=== PATIENT | male | born 1990 | race Caucasian/White ===

== ENCOUNTER → 2022-11-09 | Outpatient (CLI) | payer OTHER ==
[2022-11-11 00:07] LABS: CHLAMYDIA TRACHOMATIS, NAA Negative (Negative)
== END | disposition home or self-care (01) ==
LOC: LAB 11:07 → LAB SHORT 11:07
PROVIDERS: Nurse Practitioner Family
DX: Z11.3 Encounter for screening for infections with a predominantly sexual mode of transmission (principal); Z76.89 Persons encountering health services in other specified circumstances
CPT/HCPCS: 87491; 87591

== ENCOUNTER → 2024-06-22 | Outpatient (CLI) | payer OTHER ==
[2024-06-22 10:13] LABS: BASOPHILS ABSOLUTE AUTO 0.05 K/mm3 (0.00-0.23); BASOPHILS PERCENT AUTO 1 % (0-2); EOSINOPHILS ABSOLUTE AUTO 0.05 K/mm3 (0.00-0.68); EOSINOPHILS PERCENT AUTO 1 % (0-6); Hemoglobin 15.3 g/dL (13.5-17.5); IMMATURE GRAN ABSOLUTE AUTO 0.02 K/mm3 (0.00-0.10); IMMATURE GRAN PERCENT AUTO 0 % (0-1); LYMPHOCYTES ABSOLUTE AUTO 1.31 K/mm3 (0.84-5.20); LYMPHOCYTES PERCENT AUTO 28 % (21-46); MONOCYTES ABSOLUTE AUTO 0.42 K/mm3 (0.16-1.47); MONOCYTES PERCENT AUTO 9 % (4-13); Mean Corpuscular HGB 30.8 pg (26.0-34.0); Mean Corpuscular Volume 91 fL (80-100); Mean Platelet Volume 9.3 fL (9.1-12.4); NEUTROPHILS ABSOLUTE AUTO 2.91 K/mm3 (1.96-9.15); NEUTROPHILS PERCENT AUTO 61 % (41-73); Platelet Count 254 K/mm3 (150-400); RDW Coefficient Variation 12.7 % (11.7-14.2); RDW Standard Deviation 41.7 fL (35.1-46.3); Red Blood Cell Count 4.97 M/mm3 (4.30-5.90); White Blood Cell Count 4.76 K/mm3 (4.00-11.30)
== END ==
LOC: LAB SHORT 10:05 → LAB 10:05
PROVIDERS: Physician Assistant
DX: K92.1 Melena (principal)
CPT/HCPCS: 85025

== ENCOUNTER → 2024-10-15 | Outpatient (CLI) | payer OTHER ==
[~2024-10-15] MED LIST: MICONAZOLE NIT130 GM TOP
[2024-10-20 08:42] LABS: APTIMA MEDIA TYPE Urine; C. TRACHOMATIS BY TMA Negative (Negative); N. GONORRHOEAE BY TMA Negative (Negative); SPECIMEN SOURCE Urine
== END ==
LOC: LAB SHORT 17:53 → LAB 17:53
DX: R30.0 Dysuria (principal)
CPT/HCPCS: 87491; 87591

== ENCOUNTER 2024-10-18 00:53 | Emergency (ER) | payer OTHER ==
[~2024-10-18] VITALS: Ht 172.7 cm; Wt 93.9 kg
[2024-10-18 01:12] VITALS: BP 128/92
[2024-10-18 02:37] LABS: Source, Urine Clean Catch
[2024-10-18 02:43] LABS: Bilirubin, Urine Neg (Neg); Blood, Urine Neg (Neg); Glucose Qualitative, Urine Neg (Neg); Ketones, Urine Neg (Neg); Leukocyte Esterase, Urine 1+ (Neg); Nitrite, Urine Neg (Neg); Protein, Urine 1+ (Neg); Specific Gravity, Urine 1.015 (1.003-1.022); Urobilinogen, Urine 3+ (Normal); pH, Urine 6.5 (5.0-8.0)
[2024-10-18 03:13] LABS: Appearance, Urine Clear (Clear); Color, Urine Yellow (P-Yellow)
[2024-10-18 03:14] LABS: Bacteria Not Seen /hpf; Red Blood Cells, Urine Not Seen /hpf (0-2); Squamous Epithelial Cells Rare /hpf (Few); White Blood Cells, Urine 0-2 /hpf (0-5)
[2024-10-18] MEDS ORDERED: MICONAZOLE NIT130 GM TOP ×4 (03:38→10:50)
[2024-10-18] MEDS ORDERED: Diphth,Pertuss(Acell),Tet Vac 0.5 ML VIAL IM ONE (03:40)
[2024-10-18] MEDS ORDERED: Miconazole Nitrate 2% 85 GM PWD TOP ONE (03:40)
== END 2024-10-18 03:53 | disposition home or self-care (01) ==
LOC: ER 00:53
PROVIDERS: Emergency Medicine
DX: B37.49 Other urogenital candidiasis (principal); R51.9 Headache, unspecified; N43.3 Hydrocele, unspecified; Z59.89 Other problems related to housing and economic circumstances
CPT/HCPCS: 76870; 81001; 90471; 90715; 99284-25; A9270

== ENCOUNTER 2024-11-06 05:33 | Emergency (ER) | payer OTHER ==
[~2024-11-06] VITALS: Ht 175.3 cm; Wt 93.9 kg
[2024-11-06] MEDS ORDERED: Cyanocobalamin 1000 MCG/ML 1ML Vial IM ONE (07:45)
[2024-11-06 08:06] LABS: BASOPHILS ABSOLUTE AUTO 0.01 K/mm3 (0.00-0.23); BASOPHILS PERCENT AUTO 0 % (0-2); EOSINOPHILS ABSOLUTE AUTO 0.15 K/mm3 (0.00-0.68); EOSINOPHILS PERCENT AUTO 4 % (0-6); Hematocrit 29.6 % (37.0-53.0); Hemoglobin 10.4 g/dL (13.5-17.5); Mean Corpuscular HGB 39.8 pg (26.0-34.0); Mean Corpuscular HGB Conc 35.1 g/dL (31.5-36.5); Mean Corpuscular Volume 113 fL (80-100); Mean Platelet Volume 9.3 fL (9.1-12.4); Platelet Count 280 K/mm3 (150-400); RDW Coefficient Variation 18.6 % (11.7-14.2); RDW Standard Deviation 78.4 fL (35.1-46.3); Red Blood Cell Count 2.61 M/mm3 (4.30-5.90); White Blood Cell Count 3.78 K/mm3 (4.00-11.30)
[2024-11-06 08:07] LABS: IMMATURE GRAN ABSOLUTE AUTO 0.02 K/mm3 (0.00-0.10); IMMATURE GRAN PERCENT AUTO 1 % (0-1); LYMPHOCYTES ABSOLUTE AUTO 1.65 K/mm3 (0.84-5.20); LYMPHOCYTES PERCENT AUTO 44 % (21-46); MONOCYTES ABSOLUTE AUTO 0.12 K/mm3 (0.16-1.47); MONOCYTES PERCENT AUTO 3 % (4-13); NEUTROPHILS ABSOLUTE AUTO 1.83 K/mm3 (1.96-9.15); NEUTROPHILS PERCENT AUTO 48 % (41-73)
[2024-11-06 08:19] LABS: Bun/Creatinine Ratio 20.3 (12.0-20.0); Calcium, Blood 8.9 mg/dL (8.5-10.1); Creatinine, Blood 0.98 mg/dL (0.60-1.20); Potassium, Blood 4.2 mmol/L (3.5-5.5)
[2024-11-06] MEDS ORDERED: B-12 COMPL1000 MCG/2 IM (08:59)
[2024-11-06] MEDS ORDERED: [UNRECOGNIZED DRUG - OTHER] PO (09:07)
[2024-11-06 09:41] VITALS: BP 162/88
[2024-11-08] MEDS ORDERED: [UNRECOGNIZED DRUG - OTHER] PO ×2 (08:17→16:13)
== END 2024-11-06 09:41 | disposition home or self-care (01) ==
LOC: ER 05:33
PROVIDERS: Student in an Organized Health Care Education/Training Program
DX: T41.0X1A Poisoning by inhaled anesthetics, accidental (unintentional), initial encounter (principal); G62.0 Drug-induced polyneuropathy; D53.1 Other megaloblastic anemias, not elsewhere classified; R68.89 Other general symptoms and signs; Z87.891 Personal history of nicotine dependence
CPT/HCPCS: 80048; 82607; 85025; 96372; 99283-25; J3420

== ENCOUNTER 2024-11-27 00:04 | Emergency (ER) | payer OTHER ==
[~2024-11-27] VITALS: Ht 172.7 cm; Wt 96.6 kg
[~2024-11-27 00:04] MED LIST changes: +B-12 COMPL1000 MCG/2 IM; +[UNRECOGNIZED DRUG - OTHER] PO
[2024-11-27] MEDS ORDERED: OxyCODONE 5 mg/Acetamin 325 mg TABLET PO ONE (06:00)
[2024-11-27] MEDS ORDERED: Percocet 5-3251 EACH PO (06:59)
[2024-11-27] MEDS ORDERED: NAPR500 PO (07:00)
[2024-11-27 07:55] VITALS: BP 128/79
== END 2024-11-27 08:00 | disposition home or self-care (01) ==
LOC: ER 00:04
DX: S99.912A Unspecified injury of left ankle, initial encounter (principal); M24.272 Disorder of ligament, left ankle; W10.8XXA Fall (on) (from) other stairs and steps, initial encounter; Z79.899 Other long term (current) drug therapy; Z87.891 Personal history of nicotine dependence
CPT/HCPCS: 29515; 73610; 99283-25; A9270

== ENCOUNTER 2025-01-22 15:29 | Emergency (ER) | payer OTHER ==
[~2025-01-22] VITALS: Ht 175.3 cm; Wt 108.9 kg
[~2025-01-22 15:29] MED LIST changes: +NAPR500 PO; +Percocet 5-3251 EACH PO
[2025-01-22 16:01] LABS: BASOPHILS ABSOLUTE AUTO 0.07 K/mm3 (0.00-0.23); BASOPHILS PERCENT AUTO 1 % (0-2); EOSINOPHILS ABSOLUTE AUTO 0.21 K/mm3 (0.00-0.68); EOSINOPHILS PERCENT AUTO 4 % (0-6); Hematocrit 42.9 % (37.0-53.0); Hemoglobin 14.6 g/dL (13.5-17.5); IMMATURE GRAN ABSOLUTE AUTO 0.01 K/mm3 (0.00-0.10); IMMATURE GRAN PERCENT AUTO 0 % (0-1); LYMPHOCYTES ABSOLUTE AUTO 1.28 K/mm3 (0.84-5.20); LYMPHOCYTES PERCENT AUTO 24 % (21-46); MONOCYTES ABSOLUTE AUTO 0.75 K/mm3 (0.16-1.47); MONOCYTES PERCENT AUTO 14 % (4-13); Mean Corpuscular HGB 33.4 pg (26.0-34.0); Mean Corpuscular Volume 98 fL (80-100); Mean Platelet Volume 10.1 fL (9.1-12.4); NEUTROPHILS ABSOLUTE AUTO 3.12 K/mm3 (1.96-9.15); NEUTROPHILS PERCENT AUTO 57 % (41-73); Platelet Count 297 K/mm3 (150-400); RDW Coefficient Variation 15.6 % (11.7-14.2); RDW Standard Deviation 56.7 fL (35.1-46.3); Red Blood Cell Count 4.37 M/mm3 (4.30-5.90); White Blood Cell Count 5.44 K/mm3 (4.00-11.30)
[2025-01-22 16:25] LABS: Albumin, Blood 3.8 g/dL (3.4-5.0); Albumin/Globulin Ratio 1.1 (0.8-1.8); Bilirubin, Total 0.5 mg/dL (0.1-1.0); Bun/Creatinine Ratio 15.1 (12.0-20.0); Calcium, Blood 8.8 mg/dL (8.5-10.1); Creatinine, Blood 0.86 mg/dL (0.60-1.20); Globulin, Blood 3.5 g/dL (2.2-4.0); Potassium, Blood 3.6 mmol/L (3.5-5.5); Total Protein, Blood 7.3 g/dL (6.4-8.2)
[2025-01-22 17:52] VITALS: BP 139/83
[2025-01-22] MEDS ORDERED: GABA300 PO (18:05)
[2025-01-22] MEDS ORDERED: POTA10T PO (18:08)
[2025-01-22] MEDS ORDERED: Furosemide20 MG PO (18:08)
== END 2025-01-22 18:33 | disposition home or self-care (01) ==
LOC: ER 15:29
PROVIDERS: Physician Assistant
DX: G62.9 Polyneuropathy, unspecified (principal); R60.0 Localized edema; F17.290 Nicotine dependence, other tobacco product, uncomplicated; Z79.891 Long term (current) use of opiate analgesic; Z79.1 Long term (current) use of non-steroidal anti-inflammatories (NSAID)
CPT/HCPCS: 71046; 80053; 83880; 84484; 85025; 93005; 93010; 99284-25

== ENCOUNTER 2025-01-23 17:09 | Emergency (ER) | payer OTHER ==
[~2025-01-23] VITALS: Ht 175.3 cm; Wt 108.9 kg
[~2025-01-23 17:09] MED LIST changes: +Furosemide20 MG PO; +GABA300 PO; +POTA10T PO
[2025-01-23] MEDS ORDERED: Adenosine 3 MG/ML 2 ML Vial ONE (17:16)
[2025-01-23] MEDS ORDERED: LORazepam 2 MG/ML 1ML Injection ONE (17:24)
[2025-01-23] MEDS ORDERED: LORazepam 2 MG/ML 1ML Injection IV ONE (17:30)
[2025-01-23 17:34] LABS: BASOPHILS ABSOLUTE AUTO 0.07 K/mm3 (0.00-0.23); BASOPHILS PERCENT AUTO 1 % (0-2); EOSINOPHILS ABSOLUTE AUTO 0.33 K/mm3 (0.00-0.68); EOSINOPHILS PERCENT AUTO 5 % (0-6); Hematocrit 43.9 % (37.0-53.0); IMMATURE GRAN ABSOLUTE AUTO 0.01 K/mm3 (0.00-0.10); IMMATURE GRAN PERCENT AUTO 0 % (0-1); LYMPHOCYTES ABSOLUTE AUTO 2.36 K/mm3 (0.84-5.20); LYMPHOCYTES PERCENT AUTO 34 % (21-46); MONOCYTES ABSOLUTE AUTO 1.08 K/mm3 (0.16-1.47); MONOCYTES PERCENT AUTO 16 % (4-13); Mean Corpuscular HGB 33.2 pg (26.0-34.0); Mean Corpuscular HGB Conc 34.2 g/dL (31.5-36.5); Mean Corpuscular Volume 97 fL (80-100); Mean Platelet Volume 10.2 fL (9.1-12.4); NEUTROPHILS ABSOLUTE AUTO 3.07 K/mm3 (1.96-9.15); NEUTROPHILS PERCENT AUTO 44 % (41-73); Platelet Count 328 K/mm3 (150-400); RDW Coefficient Variation 15.6 % (11.7-14.2); RDW Standard Deviation 55.1 fL (35.1-46.3); Red Blood Cell Count 4.52 M/mm3 (4.30-5.90); White Blood Cell Count 6.92 K/mm3 (4.00-11.30)
[2025-01-23 17:49] LABS: Alanine Aminotransfer (ALT/SGP 90 U/L (12-78); Albumin, Blood 3.9 g/dL (3.4-5.0); Albumin/Globulin Ratio 1.1 (0.8-1.8); Alk Phos 55 U/L (50-136); Anion Gap 12 mmol/L (3-11); Aspartate Aminotrans (AST/SGOT 56 U/L (12-37); Bilirubin, Total 0.8 mg/dL (0.1-1.0); Blood Urea Nitrogen 10 mg/dL (8-24); Bun/Creatinine Ratio 9.9 (12.0-20.0); CO2, Blood 24 mmol/L (21-32); Calcium, Blood 9.2 mg/dL (8.5-10.1); Chloride, Blood 103 mmol/L (98-108); Creatinine, Blood 1.01 mg/dL (0.60-1.20); Ethanol (Alcohol), Blood, Med <3 mg/dL; Globulin, Blood 3.7 g/dL (2.2-4.0); Glomerular Filtration Rate 101 (60-); Glucose, Blood 107 mg/dL (70-99); Sodium, Blood 135 mmol/L (136-145); Total Protein, Blood 7.6 g/dL (6.4-8.2)
[2025-01-23 19:01] VITALS: BP 116/97
[2025-01-23 19:02] LABS: U Amphetamine Screen DETECTED; U Barbituate Screen Not Detected; U Benzodiazapine Screen Not Detected; U Buprenorphine Screen Not Detected; U Cannabinoids Screen Not Detected; U Cocaine Screen Not Detected; U Methadone Screen Not Detected; U Methamphetamine Screen DETECTED; U Opiates Screen Not Detected; U Oxycodone Screen Not Detected; U Phencyclidine Screen Not Detected
== END 2025-01-23 19:15 | disposition home or self-care (01) ==
LOC: ER 17:09
PROVIDERS: Emergency Medicine
DX: I47.19 Other supraventricular tachycardia (principal); F41.9 Anxiety disorder, unspecified; F19.10 Other psychoactive substance abuse, uncomplicated; I10 Essential (primary) hypertension; F17.290 Nicotine dependence, other tobacco product, uncomplicated; Z79.899 Other long term (current) drug therapy
CPT/HCPCS: 71045; 74177; 80053; 80320; 83690; 85025; 93005; 93010; 96374-59; 99285-25; J0153; J2060; Q9967

== ENCOUNTER 2025-01-25 01:56 | Emergency (ER) | payer OTHER ==
[~2025-01-25] VITALS: Ht 175.3 cm; Wt 104.3 kg
[2025-01-25 02:39] LABS: BASOPHILS ABSOLUTE AUTO 0.07 K/mm3 (0.00-0.23); BASOPHILS PERCENT AUTO 1 % (0-2); EOSINOPHILS ABSOLUTE AUTO 0.33 K/mm3 (0.00-0.68); EOSINOPHILS PERCENT AUTO 5 % (0-6); Hematocrit 43.3 % (37.0-53.0); Hemoglobin 14.1 g/dL (13.5-17.5); IMMATURE GRAN ABSOLUTE AUTO 0.02 K/mm3 (0.00-0.10); IMMATURE GRAN PERCENT AUTO 0 % (0-1); LYMPHOCYTES ABSOLUTE AUTO 1.97 K/mm3 (0.84-5.20); LYMPHOCYTES PERCENT AUTO 32 % (21-46); MONOCYTES ABSOLUTE AUTO 0.78 K/mm3 (0.16-1.47); MONOCYTES PERCENT AUTO 13 % (4-13); Mean Corpuscular HGB 31.9 pg (26.0-34.0); Mean Corpuscular HGB Conc 32.6 g/dL (31.5-36.5); Mean Corpuscular Volume 98 fL (80-100); Mean Platelet Volume 10.2 fL (9.1-12.4); NEUTROPHILS ABSOLUTE AUTO 2.93 K/mm3 (1.96-9.15); NEUTROPHILS PERCENT AUTO 48 % (41-73); Platelet Count 275 K/mm3 (150-400); RDW Coefficient Variation 15.5 % (11.7-14.2); Red Blood Cell Count 4.42 M/mm3 (4.30-5.90)
[2025-01-25 02:58] LABS: Albumin, Blood 3.9 g/dL (3.4-5.0); Albumin/Globulin Ratio 1.2 (0.8-1.8); Bilirubin, Total 0.4 mg/dL (0.1-1.0); Bun/Creatinine Ratio 12.6 (12.0-20.0); Calcium, Blood 8.9 mg/dL (8.5-10.1); Creatinine, Blood 1.03 mg/dL (0.60-1.20); Globulin, Blood 3.2 g/dL (2.2-4.0); Potassium, Blood 3.6 mmol/L (3.5-5.5); Total Protein, Blood 7.1 g/dL (6.4-8.2)
[2025-01-25 04:13] VITALS: BP 111/76
== END 2025-01-25 04:22 | disposition home or self-care (01) ==
LOC: ER 01:56
PROVIDERS: Emergency Medicine
DX: R07.9 Chest pain, unspecified (principal); R20.2 Paresthesia of skin; Z79.899 Other long term (current) drug therapy; F17.290 Nicotine dependence, other tobacco product, uncomplicated
CPT/HCPCS: 71046; 80053; 83690; 84484; 85025; 93005; 93010; 99285-25

== ENCOUNTER 2025-02-23 02:19 | Emergency (ER) | payer OTHER | END 2025-02-23 02:47 | disposition left against medical advice (07) | LOC: ER 02:19 | DX: K59.00 Constipation, unspecified (principal); Z53.21 Procedure and treatment not carried out due to patient leaving prior to being seen by health care provider ==